=== PATIENT | female | born 1940 | race Two or more races ===

== ENCOUNTER 2022-07-09 11:45 | Inpatient (IN) | payer OTHER ==
[~2022-07-09] VITALS: Ht 154.9 cm; Wt 63.5 kg
[2022-07-09] MEDS ORDERED: TOPROL XL25 M1 PO (13:46)
[2022-07-09] MEDS ORDERED: ACID REDUCER20 M1 PO (13:46)
[2022-07-09] MEDS ORDERED: LIPITOR40 MG PO (13:47)
[2022-07-09] MEDS ORDERED: MIRTAZAPINE7.5 MG PO (13:47)
[2022-07-09] MEDS ORDERED: NAMENDA5 MG PO (13:47)
[2022-07-09] MEDS ORDERED: IPRAT-ALBUT 0.5-3 ML IH (13:48)
[2022-07-09] MEDS ORDERED: PERFOROMIS20 MCG/2 M IH (13:48)
[2022-07-09] MEDS ORDERED: ARICEPT10 MG PO (13:48)
[2022-07-09] MEDS ORDERED: BUDESONIDE0.5 MG/2 M (13:49)
[2022-07-15] MEDS ORDERED: PANTOPRAZOLE SO40 MG (08:09)
[2022-07-15] MEDS ORDERED: OMEPRAZOLE20 MG (08:09)
[2022-07-15] MEDS ORDERED: ST. JOSEPH ASPI81 M2 (08:09)
[2022-07-15] MEDS ORDERED: WIXELA 250-501 EACH (08:11)
[2022-07-15] MEDS ORDERED: PROAIR HFA8.5 GM (08:11)
== END 2022-07-16 14:03 | disposition home or self-care (01) | DRG 741 ==
LOC: O/R 07-15 05:48 → OB/GYN 07-15 05:48
PROVIDERS: ADMIT Obstetrics & Gynecology Gynecologic Oncology; ATTEND Obstetrics & Gynecology Gynecologic Oncology
PROC: 0UT74ZZ Resection of Bilateral Fallopian Tubes, Percutaneous Endoscopic Approach (ICD-10-PCS; 2022-07-15)
PROC: 0UT24ZZ Resection of Bilateral Ovaries, Percutaneous Endoscopic Approach (ICD-10-PCS; 2022-07-15)
PROC: 0DNW4ZZ Release Peritoneum, Percutaneous Endoscopic Approach (ICD-10-PCS; 2022-07-15)
PROC: 07BC4ZZ Excision of Pelvis Lymphatic, Percutaneous Endoscopic Approach (ICD-10-PCS; 2022-07-15)
PROC: 0UT94ZZ Resection of Uterus, Percutaneous Endoscopic Approach (ICD-10-PCS; principal; 2022-07-15 07:00)
DX: C54.1 Malignant neoplasm of endometrium (principal); Z20.822 Contact with and (suspected) exposure to COVID-19